=== PATIENT | female | born 1965 | race Caucasian/White ===

== ENCOUNTER → 2018-04-16 12:14 | Outpatient (CLI) | payer MEDICAID ==
[2018-04-16 13:41] LABS: BASOPHILS 0.7 % (0-2); EOSINOPHILS 3.2 % (0-7); HEMATOCRIT 47.7 % (36.0-48.0); HEMOGLOBIN 15.6 g/dL (12-16); IMMATURE GRANULOCYTES 0.1 % (0-5); LYMPHOCYTES 39.4 % (15-50); MCH 28.8 pg (26.0-34.0); MCHC 32.7 g/dL (31.0-37.0); MCV 88.2 fL (80.0-100.0); MEAN PLATELET VOLUME 10.7 fL (7.4-10.4); MONOCYTES 7.9 % (2-11); NEUTROPHILS 48.7 % (40-80); PLATELET COUNT 190 10x3/uL (130-400); RBC 5.41 10x6/uL (4.00-5.40); RDW 14.2 % (11.5-14.5); WBC 7.5 10x3/uL (4.8-10.8)
== END | disposition home or self-care (01) ==
LOC: D.RT 12:14
PROVIDERS: ATTEND Internal Medicine Pulmonary Disease
DX: J45.909 Unspecified asthma, uncomplicated (principal); R06.00 Dyspnea, unspecified

== ENCOUNTER → 2018-07-15 10:11 | Outpatient (CLI) | payer MEDICAID ==
[2018-07-15 10:50] LABS: ALBUMIN 3.4 g/dL (3.4-5.0); BILIRUBIN - DIRECT 0.08 mg/dL (0.00-0.30); BILIRUBIN - INDIRECT 0.28 mg/dL (0.00-1.00); BILIRUBIN - TOTAL 0.36 mg/dL (0.2-1.3); PROTEIN - SERUM 7.4 g/dL (6.4-8.2)
== END | disposition home or self-care (01) ==
LOC: D.LAB 10:11
PROVIDERS: ATTEND Internal Medicine Gastroenterology
DX: R74.8 Abnormal levels of other serum enzymes (principal); R11.10 Vomiting, unspecified; R19.4 Change in bowel habit

== ENCOUNTER → 2018-07-22 07:59 | Outpatient (CLI) | payer MEDICAID ==
[2018-07-23 17:10] LABS: HEPATITIS C ANTIBODY <0.1 S/CO RAT (0.0-0.9)
== END | disposition home or self-care (01) ==
LOC: D.US 07:59
PROVIDERS: ATTEND Internal Medicine Gastroenterology
DX: R94.5 Abnormal results of liver function studies (principal)

== ENCOUNTER 2019-01-23 08:00 | Outpatient (CLI) | payer MEDICAID ==
[2019-01-23 11:09] LABS: ALBUMIN 3.6 g/dL (3.4-5.0); BILIRUBIN - DIRECT 0.1 mg/dL (0.00-0.30); BILIRUBIN - INDIRECT 0.39 mg/dL (0.00-1.00); BILIRUBIN - TOTAL 0.49 mg/dL (0.2-1.3); PROTEIN - SERUM 7.8 g/dL (6.4-8.2)
== END 2019-01-23 08:01 | disposition home or self-care (01) ==
LOC: D.LAB 08:00 → D.US 09:30
PROVIDERS: ATTEND Internal Medicine Gastroenterology
DX: K76.0 Fatty (change of) liver, not elsewhere classified (principal)

== ENCOUNTER 2019-04-27 09:09 | Day surgery (SDC) | payer OTHER ==
[~2019-04-27] VITALS: Ht 147.3 cm; Wt 92.7 kg
[2019-04-27 09:34] LABS: HEMATOCRIT 49.4 % (36.0-48.0); HEMOGLOBIN 16.7 g/dL (12-16); MCH 29.8 pg (26.0-34.0); MCHC 33.8 g/dL (31.0-37.0); MCV 88.2 fL (80.0-100.0); MEAN PLATELET VOLUME 10.1 fL (7.4-10.4); RBC 5.6 10x6/uL (4.00-5.40); RDW 13.9 % (11.5-14.5); WBC 11.3 10x3/uL (4.8-10.8)
[2019-04-27 09:56] VITALS: Ht 147.3 cm; Wt 92.7 kg
[2019-04-27] MEDS ORDERED: ALBUTEROL SULF8.5 GM INH (10:09)
[2019-04-27] MEDS ORDERED: COZAAR100 MG PO (10:09)
[2019-04-27] MEDS ORDERED: PROVENTIL/2.5 MG/3 M INH (10:10)
[2019-04-27] MEDS ORDERED: SYMBICORT 16010.2 GM INH (10:11)
[2019-04-27] MEDS ORDERED: SINGULAIR10 MG PO (10:11)
[2019-04-27] MEDS ORDERED: FLUTICASONE PRO16 GM NASAL (10:12)
--- NOTE | 2019-04-27 12:15 | NUR ---
PT DC INSTRUCTIONS REVIEWED AT THIS TIME, PT AND FAMILY VERBALIZE UNDERSTANDING. PT IV REMOVED AT THIS TIME, INTACT, NO REDNESS OR SWELLING NOTED AT SITE. PT IV SITE DRESSED WITH BANDAID AND GAUZE, NOT BLEEDING AT THIS TIME.
--- NOTE | 2019-04-27 12:18 | NUR ---
PT LEAVING OPS AT THIS TIME, VIA WC. NAD NOTED.
--- NOTE | 2019-04-27 12:20 | NUR ---
PT LEAVING OPS AT THIS TIME VIA WC, WITH NURSE. NAD NOTED.
--- NOTE | 2019-04-28 13:06 | OP ---
PATIENT NAME: YENIFER RAMOS MEDICAL RECORD: [id number] :63 LOCATION:D.[facility] ADMISSION DATE: SURGEON: YELITZA WEBSTER DO DATE OF OPERATION: 04/27/2019 PROCEDURE: Colonoscopy with polypectomy. INDICATIONS FOR PROCEDURE: Chronic constipation and change in bowel habits. SCOPE: Olympus video pediatric colonoscope. MEDICATIONS: Propofol 620 mg IV per anesthesia. WITHDRAWAL TIME: 16 minutes. ESTIMATED BLOOD LOSS: Minimal. COMPLICATIONS: None. FINDINGS: Informed consent was given. The patient was made comfortable with the above medication. After reaching an adequate level of sedation by slow IV push, the patient was placed on her left side. A digital rectal examination was performed and it was normal other than external hemorrhoidal tags. The endoscope was advanced under direct visualization through the rectum to the cecum, confirmed by the presence of the appendiceal orifice and ileocecal valve. The endoscope was slowly withdrawn and mucosa was carefully examined. The prep quality was good. There were 4 polyps visualized in the rectum alone. They range in size from 3 to 7 mm in diameter. They were all sessile. They were removed using hot snare. In the ascending colon, there was a single benign-appearing sessile polyp, which measured approximately 3 mm in diameter. It was removed using a hot forceps. There was evidence of mild diverticulosis involving the descending and sigmoid colon. Retroflexion was performed in the rectum with a normal appearing rectal wall. The endoscope was withdrawn from the patient. The patient tolerated the procedure well and there were no complications. IMPRESSION: 1. Five total polyps as described above, removed using a combination of a hot snare and hot forceps. 2. Mild diverticulosis. 3. External hemorrhoidal tags. PLAN AND RECOMMENDATIONS: 1. Discharge home when recovery parameters are met. 2. Follow up biopsy specimen results. 3. High fiber diet. 4. Continue current medications. 5. We will refer to Dr. Ross at the patient's request for management of hemorrhoid tags. 6. We will seek authorization from insurance for Motegrity 2 mg daily for chronic constipation. If this is not approved, we will seek approval for Amitiza or Linzess. 7. Recall colonoscopy in 3 years based on the polyps removed today. TRANSINT:[id number] Voice Confirmation ID: [id number] DOCUMENT ID: [id number] OPERATIVE REPORT [id number] YENIFER RAMOSYELITZA QUIRSO DO at 1306 CC: [id number] DICTATION DATE: 04/27/19 1146 STERILE PROCESSING TECH: 04/27/191957 [facility] 04/27/19 [facility] [address] [place] [address]
== END 2019-04-27 12:20 | disposition home or self-care (01) ==
LOC: D.OPS 09:09
PROVIDERS: Anesthesiology; ATTEND Internal Medicine Gastroenterology
DX: K59.09 Other constipation (principal); K57.30 Diverticulosis of large intestine without perforation or abscess without bleeding; K64.4 Residual hemorrhoidal skin tags; K76.0 Fatty (change of) liver, not elsewhere classified

== ENCOUNTER → 2019-10-21 13:10 | Outpatient (CLI) | payer OTHER ==
[2019-04-27 09:56] VITALS: BMI 42.7
[~2019-10-21 13:10] MED LIST: ALBUTEROL SULF8.5 GM INH; COZAAR100 MG PO; FLUTICASONE PRO16 GM NASAL; PROVENTIL/2.5 MG/3 M INH; SINGULAIR10 MG PO; SPIRIVA RESPIMAT4 GM INH; SYMBICORT 16010.2 GM INH
== END | disposition home or self-care (01) ==
LOC: D.RT 13:10
PROVIDERS: ATTEND Internal Medicine Pulmonary Disease
DX: J45.909 Unspecified asthma, uncomplicated (principal)

== ENCOUNTER 2019-10-23 06:27 | Day surgery (SDC) | payer OTHER ==
[~2019-10-23] VITALS: Ht 170.2 cm; Wt 93.4 kg
[2019-10-23 06:29] LABS: BASOPHILS 0.6 % (0-2); EOSINOPHILS 3.9 % (0-7); HEMOGLOBIN 16.1 g/dL (12-16); IMMATURE GRANULOCYTES 0.2 % (0-5); LYMPHOCYTES 31.4 % (15-50); MCH 29.5 pg (26.0-34.0); MCHC 32.9 g/dL (31.0-37.0); MCV 89.7 fL (80.0-100.0); MONOCYTES 7.6 % (2-11); NEUTROPHILS 56.3 % (40-80); PLATELET COUNT 214 10x3/uL (130-400); RBC 5.46 10x6/uL (4.00-5.40); RDW 14.3 % (11.5-14.5); WBC 8.3 10x3/uL (4.8-10.8)
[2019-10-23 06:31] LABS: ANION GAP 8.6 mmol/L (8-16); CALCIUM 9.2 mg/dL (8.5-10.1); CARBON DIOXIDE 32.2 mmol/L (21.0-32.0); CREATININE - SERUM 1.3 mg/dL (0.6-1.3); POTASSIUM - SERUM 3.8 mmol/L (3.5-5.1)
[2019-10-23 07:08] VITALS: BP 146/80; Ht 170.2 cm; Wt 93.4 kg
--- NOTE | 2019-10-23 14:00 | NUR ---
PT ABLE TO VOID 150 ML CLEAR YELLOW URINE, PT DENIES BLADDER PAIN OR FULLNESS.
--- NOTE | 2019-10-23 14:15 | NUR ---
PT DC INSTRUCTIONS REVIEWED AT THIS TIME, PT AND FRIEND AT BEDSIDE VERBALIZE UNDERSTANDING. PT IV REMOVED AT THIS TIME, INTACT, NO REDNESS OR SWELLING NOTED AT SITE.
--- NOTE | 2019-10-23 14:30 | NUR ---
PT LEAVING OPS AT THIS TIME VIA WC, NAD NOTED.
--- NOTE | 2019-10-27 15:08 | HP ---
PATIENT: YENIFER WINTERS MEDICAL RECORD: [id number] ACCOUNT: [id number] LOCATION:[facility] : 63 ADMISSION DATE: 10/23/19 PCP: ROMI PANG HISTORY AND PHYSICAL EXAMINATION HISTORY: It has been several months since I saw Mrs. Winters in the office. Because of the COVID situation, her operation had to be delayed. We again discussed how the operation is performed. We discussed the possible need for an additional hemorrhoidectomy, fistulotomy or lateral internal sphincterotomy depending on what I find during the operation. The risks, possible complications and alternatives to the procedure were explained to the patient. She elects to proceed. PAST MEDICAL AND SURGICAL HISTORY: Includes asthma, dyspnea, chronic obstructive lung disease, allergic rhinitis, hypertension, sleep related hypoxemia. HOME MEDICINES: The list of home medicines I have include Symbicort, Singulair, Ventolin, DuoNeb as well as Spiriva. PHYSICAL EXAMINATION: GENERAL: The patient does not appear acutely ill. She does not appear chronically ill. VITAL SIGNS: Reviewed. EARS: External ears appear normal. EYES: Extraocular movements are intact. NECK: Trachea is midline. CHEST: No intercostal retractions. PULMONARY: Mildly labored. No stridor. IMPRESSION: 1. Intractably symptomatic external hemorrhoids. 2. Third-degree internal hemorrhoidal prolapse. PLAN: Procedure for prolapse and hemorrhoids. TRANSINT:[id number] Voice Confirmation ID: [id number] DOCUMENT ID: [id number] LEONA MCKEON MD at 1508 CC: ROMI PANG MD and TREATLALITA APRN [id number] DICTATION DATE: 10/23/19 1042 ELECTRICAL INSPECTOR: 10/23/19 1223 [facility] 10/23/19 [place] [address]
--- NOTE | 2019-10-27 15:11 | OP ---
PATIENT NAME: YENIFER COLEMAN MEDICAL RECORD: [id number] :63 LOCATION:D.[facility] ADMISSION DATE: SURGEON: TALHA MCKEON MD DATE OF OPERATION: 10/23/2019 PREOPERATIVE DIAGNOSES: 1. Third-degree internal hemorrhoidal prolapse. 2. Hematochezia due to bleeding internal hemorrhoids. 3. Enlarged anal skin tag. 4. Intractably symptomatic external hemorrhoids. POSTOPERATIVE DIAGNOSES: 1. Third-degree internal hemorrhoidal prolapse. 2. Hematochezia due to bleeding internal hemorrhoids. 3. Enlarged anal skin tag. 4. Intractably symptomatic external hemorrhoids. PROCEDURES: 1. Procedure for prolapse and hemorrhoids. 2. Excision of anal skin tag with closure. SURGEON: Talha Mckeon MD HOSPITAL CLINIC ASSISTANT: None. BLOOD LOSS: Minimal. ANESTHESIA: General. COMPLICATIONS: None. This large skin tag was still present after the procedure for prolapse and hemorrhoids. It is suspicious for a verrucous lesion and may harbor a squamous cell cancer. Additionally, it causes irritation due to its size. OPERATIVE COURSE: The patient was conveyed to the operating room electively on 10/23/2019. General anesthesia was induced by anesthesia staff. The patient was placed in the lithotomy position. The buttocks were taped laterally. The buttocks and perineum were sterilely prepped and draped. A PPH dilator retractor was placed. The retractor was then sutured to the surrounding anoderm with 2-0 silks. A pursestring suture of 2-0 Prolene was applied 1 cm cephalad to the clear retractor. The PPH stapling device was then inserted with the anvil cephalad to the pursestring suture, which was then tightened and tied. The stapling device was engaged. It was then fired. The stapling device was removed. There was an entire donut of rectal mucosal and internal hemorrhoidal tissue within the stapling device. Bleeding along the anastomotic mucosa staple line was then controlled with [id number] 3-0 Vicryls. The retractor was removed. There was still a large skin tag at the 7-8 o'clock position. This was excised with electrocautery. I then closed the excision with a horizontal mattress 3-0 Vicryl suture. A combination of Marcaine and steroid preparation were used to infiltrate the perianal tissues. Gelfoam was applied within the anus and rectum. Americaine was then applied to the external hemorrhoids. OPERATIVE REPORT [id number] YENIFER COLEMAN The patient was then extubated and conveyed to post-anesthesia care unit where she was in stable condition. She will be dismissed home on Valium as well as Parmelee and Colace. I will see her in the office in 2-3 weeks. TRANSINT:[id number] Voice Confirmation ID: [id number] DOCUMENT ID: [id number] TALHA MCKEON MD at 1511 CC: [id number] DICTATION DATE: 10/26/19 1533 RAILROAD CAR INSPECTOR: 10/27/19 0145 [facility] 10/23/19 [id number] [place] [address]
== END 2019-10-23 14:30 | disposition home or self-care (01) ==
LOC: D.OPS 06:27 → D.PAN 09:00 → D.OPS 09:15
PROVIDERS: ATTEND Surgery
DX: K64.2 Third degree hemorrhoids (principal); K92.1 Melena; K64.4 Residual hemorrhoidal skin tags; J44.9 Chronic obstructive pulmonary disease, unspecified; R06.00 Dyspnea, unspecified; J30.2 Other seasonal allergic rhinitis; I10 Essential (primary) hypertension; G47.36 Sleep related hypoventilation in conditions classified elsewhere